=== PATIENT | female | born 2000 | race Caucasian/White ===

== ENCOUNTER 2025-06-08 09:59 | Outpatient (REF) | payer OTHER, SELFPAY ==
--- NOTE | ~2025-06-08 | US_ITS ---
EXAMINATION: US THYROID HISTORY: ABN THYROID FUNCTION TECHNIQUE: Real-time grayscale ultrasound imaging was performed and images were reviewed. COMPARISON: There are no prior studies available for comparison. FINDINGS: SIZE: The right thyroid lobe measures 4.8 x 1.6 x 1.6 cm. The left thyroid lobe measures 3.7 x 1.0 x 1.3 cm. The isthmus measures 4 mm. FLOW: Flow to the gland is increased. ECHOGENICITY: The echotexture of the gland is heterogeneous. NODULES: Multiple prominent cervical lymph nodes are identified. A single thyroid nodule is identified in characteristics as follows: Nodule #: 1 Location: Left isthmus measuring 8 x 3 x 8 mm. Shape: Wider than tall (0 points) Margins: Smooth (0 points) Echotexture: Isoechoic (1 point) Composition: Solid (2 points) Calcifications: None (0 points) Total points: 3 TIRADS: TR3: Mildly suspicious. US/US thyroid IMPRESSION: No suspicious thyroid nodules are identified. ACR TI-RADS Guidelines TR1 (0 points): Benign. No follow-up or biopsy required TR2 (2 points): Not Suspicious. No biopsy or follow up indicated TR3 (3 points): Mildly Suspicious. FNA if >= 2.5 cm, Follow if >= 1.5 cm TR4 (4-6 points): Moderately Suspicious. FNA if >= 1.5 cm, Follow if >= 1.0 cm TR5 (>=7 points): Highly Suspicious. FNA if >= 1.0 cm, Follow if >= 0.5 cm Electronically signed by: Farooq Sevilla MD 06/08/2025 12:20 PM [facility]
--- OUTSIDE RECORDS SUMMARY | 2025-06-08 11:27 | XMS_ITS | Clinical Summary ---
Author Organization [facility] Address [address] [place] [address] Care Team Providers Care Aerodynamics Teacher Name Role Phone Ref, Has No Pcp Or Primary Care Provider Unavail able Allergies No known active allergies Medications Blisovi Fe 08/22, 28, 1 mg-20 mcg (21)/75 mg (7) per tablet Take 1 tablet by mouth once a day. 5 Active OneTouch Verio test strips 1 strip 3 times a day. 100 strip 11 5 Active OneTouch Delica Plus Lancet lancet 33 gauge Use to test 3 times daily. 100 each 11 5 Active Dexcom G6 Sensor deviceIndications :Type 1 diabetes mellitus without complication Change sensor every 10 days. 9 each 3 5 Active insulin lispro injection 100 units/mL vial Use up to 80 units dily via insulin pump 80 mL 3 5 Active Dexcom G6 Transmitter deviceIndications :Type 1 diabetes mellitus without complication As directed 1 each 3 5 Active Dexcom G6 Sensor deviceIndications :Type 1 diabetes mellitus without complication CHANGE SENSOR EVERY 10 DAYS 3 each 11 5 Active levothyroxine (SYNTHROID, LEVOTHROID) 25 mcg tablet Take 1 tablet (25 mcg total) by mouth once a day. 90 tablet 3 5 04/12/20 26 Active Active Problems Patient Care Coordination No te Formatting of this note migh t be different from the original. 07/03/2023 Tandem CIQ T:connect giovanni-linked and sharing Clarity: linked Problem Noted Date Diagnosed Date Subclinical hypothyroidism 07/04/2023 Assessment & Plan (01/19/2025 7:23 AM EDT): She will go to [facility] for a TSH/Reflex Free T4. Assessment & Plan (07/21/2024 9:41 PM EST): She will go to [facility] for a TSH, TPO, and ATG antibody test. Assessment & Plan (01/10/2024 11:11 AM EDT): Her TSH was slightly elevated in July to . She prefers not to take levothyroxine unless absolutely necessary to do so. She should have a repeat TSH at her next office visit. Assessment & Plan (07/04/2023 4:28 PM EST): We reviewed the risks and benefits of levothyroxine in subclinical hypothyroidism. She prefers to defer therapy until it is necessary. I told her she would need to be treated if her TSH goes above 7. I tried to add-on thyroid auto-antibodies, but the lab could not do it. Type 1 diabetes mellitus without complication Assessment & Plan (01/19/2025 7:23 AM EDT): Her GMI of 7.2% is fair but a bit sub-optimal. She would benefit from bolusing consistently 15-20 minutes before meals and from using a mildly increased carb ratio.She will go to [facility] for a serum creatinine, lipid panel, and urine microalbumin. Assessment & Plan (07/21/2024 9:40 PM EST): Her A1c of 6.7% and GMI of 7.1% today indicate her diabetes is under good control. She needs to bolus consistently before her meals. She will go to [facility] for a serum creatinine, lipid panel, and urine microalbumin. Assessment & Plan (01/10/2024 11:10 AM EDT): Her A1c of 6.6% and her GMI of 7/1% indicate her diabetes is under reasonable control. It would be nice to lower her GMI a bit by increasing her correction doses and her basal rate. I will increase her corrections by lowering her target. She ws given a new OneTouch Verio meter to use as a back-up to her DexCom. Assessment & Plan (07/04/2023 4:28 PM EST): Her A1c of 6.7% and her GMI of 7.5% indicate her diabetes is in reasonable, but a bit sub-optimal control. She booker benefit from using a higher carb ratio for all 24 hours , a higher correction after noon, and a lower target. Hopefully, after these changes she will not need to enter phoney carbs to keep her sugars good. She will meet with FABRICE Herrmann for pump education. 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 Encounters Date Type Department Care Team Description 04/12/2025 Telephone [facility] [address] [place] [address] It Applications Developer: Abebe Robetr MD 04/12/2025 Telephone [facility] [address] [place] [address] It Applications Developer: Abebe Robert MD 04/11/2025 Telephone [facility] [address] [place] [id number] It Applications Developer: Abebe Robert MD 04/05/2025 myChart Message [facility] [address] [place] [address] It Applications Developer: Abebe Robert MD Thyroid levels from Last 3 Months Social History Tobacco Use Types Packs/Day Years Used Date Smoking Tobacco: Never Assessed Comments Unknown Sex and Gender Information Value Date Recorded Sex Assigned at Female 08/07/2023 10:23 AM EST Legal Sex Female 7:54 AM EST Gender Identity Female 08/07/2023 10:23 AM EST Sexual Orientation Straight 08/07/2023 10 :23 AM EST Last Filed Vital Signs Vital Sign Reading Time Taken Comments Blood Pressure 124/85 07/20/2024 4:23 PM EST Pulse 68 07/20/2024 4:23 PM EST Temperature - - Respiratory Rate - - Oxygen Saturation - - Inhaled Oxygen Concentration - - Weight 57 kg (125 lb 10.6 oz) 07/20/2024 4:23 PM EST Height 167.6 cm (5' 5.98 ) 07/20/2024 4:23 PM ES T Body Mass Index 20.29 07/20/2024 4:23 PM EST Plan of Treatment Upcoming Encounters Date Type Department Care Team (Late st Contact Info) Description 10/13/2025 3:30 PM EDT Office Visit [facility] [address] [place] [address] It Applications Developer: Abebe Robert MD [address] [place] [phone] (Work) Health Maintenance Due Date Last Done Comments Basic Metabolic Panel 2000 HIV Screening 2000 Pap Smear 2000 Pneumococcal Vaccine: Pediat jean (0-5 Years) and At-Risk Patients (6-50 Years) (1 of 1 - PPSV23, PCV20, or PCV21) 2006 07/12/2002, 04/08/2001, 01/04/2001, Additional history exists Ophthalmology Exam 2010 HPV Vaccines (1 - 3-dose series) 2015 Alcohol/Substance Use Screening 08/03/2024 Depression Screening and Follow-Up 08/03/2024 Social Drivers of Health Gloria ual Screening 08/03/2024 COVID-19 Vaccine (2 - 2024-2 6 season) 2025 11/08/2021 Influenza Vaccine (#1) 2025 Chlamydia Screening 04/11/2025 04/11/2024 Hemoglobin A1C 10/19/2025 04/21/2025, 07/2 12/2024, 12/30/2024, Additional history exists Urine Microalbumin 03/08/2026 03/08/2025, 07/03/2023 DTaP,Tdap,and Td Vaccines (8 - Td or Tdap) 03/03/2033 03/03/2023, 07/20/2012, 08/14/2005, Additional history exists Hepatitis B Vaccines Completed 10/01/2001, 2000, 2000 Varicella Vaccines Completed 03/24/2013, 07/05/2001 Hepatitis C Screening Completed 04/11/2024 Procedures * Due to [place] [employer] law, this organization might not be sharing negative HIV tests. Procedure Name Priority Date/Time Associated Diagnosis Comments T4, FREE Routine 03/08/2025 7:37 AM EDT LIPID PANEL Routine 03/08/2025 7:37 AM EDT Type 1 diabetes mellitus without complication (HCC) CREATININE Routine 03/08/2025 7:37 AM EDT Type 1 diabetes mellitus without complication (HCC) MICROALBUMIN, RANDOM URINE WITH CREATININE Routine 03/08/2025 7:37 AM EDT Type 1 diabetes mellitus without complication (HCC) TSH REFLEX FREE T4 Routine 03/08/2025 7: 37 AM EDT Subclinical hypothyroidism POCT GLYCOSYLATED HEMOGLOBIN (HGB A1C) Routine 07/20/2024 4:29 PM EST from Last 3 Months or Most Recently Relevant to Health Maintenance Results * Due to [place] [employer] law, this organization might not be sharing negative HIV tests. * (ABNORMAL) TSH Reflex Free T4 (03/08/2025 7:37 AM EDT) TSH 11.83(H) mIU/L 03/09/2025 6:20 AM EDT [facility] Comment: Reference Range > or = 20 Years 0.40-4.50 Ranges First trimester 0.26-2.66 Second trimester 0.55-2.73 Third trimester 0.43-2.91 Blood Structure of peripheral vein / Unknown 03/08/2025 7:37 AM EDT 03/08/2025 11:02 PM EDT [facility] - 03/09/2025 3:40 PM EDT FASTING:NO us Abebe Dunn MD LAB BLOOD ORDERABLES Final Re sult Performing Organization Address City/[facility]/ZIP Co de Phone Number [facility] [address], [place] [address], [place] [phone] [employer] [address] [address] * Microalbumin, Random Urine with Creatinine (03/08/2025 7:37 AM EDT) Creatinine, Random Urine 274 20 - 275 mg/dL 03/09/2025 3:38 PM EDT [employer] [facility] Microalbumin 0.5 mg/dL 03/09/2025 3:38 PM EDT [employer] [facility] Comment: Reference Range Not established Microalbumin/Crea tinine Ratio, Random Urine 2 <30 mg/g creat 03/09/2025 3:38 PM EDT [employer] [facility] Comment: The ADA defines abnormalities in albumin excretion as follows: Albuminuria Category Result (mg/g creatinine) Normal to Mildly increased <30 Moderately increased 30-299 Severely increased > OR = 300 The ADA recommends that at least two of three specimens collected within a 3-6 month period be abnormal before considering a patient to be within a diagnostic category. Urine Voided urine specimen / Unknown 03/08/2025 7:37 AM EDT 03/08/2025 10:57 PM EDT [facility] - 03/09/2025 3:40 PM EDT FASTING:NO us Abebe Dunn MD LAB URINE ORDERABLES Final Re sult Performing Organization Address City/[facility]/ZIP Co de Phone Number [facility] [address], [place] [address], [place] [phone] [employer] [facility] [address] [place] [address] * T4, Free (03/08/2025 7:37 AM EDT) T4, Free 1.1 0.8 - 1.8 ng/dL 03/09/2025 6:20 AM EDT [facility] 03/08/2025 7:37 AM EDT 03/08/2025 11:02 PM EDT [facility] - 03/09/2025 3:40 PM EDT FASTING:NO us Abebe Dunn MD LAB BLOOD ORDERABLES Final Re sult Performing Organization Address [facility] de Phone Number [facility] [address] [address], [place] [phone] [employer] [address] [address] * Creatinine (03/08/2025 7:37 AM EDT) Creatinine 0.82 0.50 - 0.96 mg/dL 03/09/2025 12:46 AM EDT [employer] [facility] eGFR 102 > OR = 60 mL/min/1.7 3m2 03/09/2025 12:46 AM EDT [employer] [facility] Blood Structure of peripheral vein / Unknown 03/08/2025 7:37 AM EDT 03/08/2025 11:02 PM EDT Narrative [facility] - 03/09/2025 3:40 PM EDT FASTING:NO us Abebe Dunn MD LAB BLOOD ORDERABLES Final Re sult Performing Organization Address [facility] de Phone Number [facility] [address] [place] [phone], [place] [phone] [employer] [address] [address] * (ABNORMAL) Lipid panel (03/08/2025 7:37 AM EDT) Cholesterol, Total 177 <200 mg/dL 03/09/2025 12:46 AM EDT [employer] [facility] HDL Cholesterol 53 > OR = 50 mg/dL 03/09/2025 12:46 AM EDT [facility] [employer] [facility] Triglycerides 83 <150 mg/dL 03/09/2025 12:46 AM EDT [employer] [facility] LDL-Cholesterol 107(H) mg/dL (calc) 03/09/2025 12:46 AM EDT [facility] Comment: Reference range: <100 Desirable range <100 mg/dL for primary prevention; <70 mg/dL for patients with CHD or diabetic patients with > or = 2 CHD risk factors. LDL-C is now calculated using the Bia calculation, which is a validated novel method providing better accuracy than the Friedewald equation in the estimation of LDL-C. Mandeep SS et al. MICAH. 2013;310(19): 4194-1250 (http://education.[facility]/faq/GRF079) Chol/HDLC Ratio 3.3 <5.0 (calc) 03/09/2025 12:46 AM EDT [facility] Non HDL Cholesterol 124 <130 mg/dL (calc) 03/09/2025 12:46 AM EDT [facility] Comment: For patients with diabetes plus 1 major ASCVD risk factor, treating to a non-HDL-C goal of <100 mg/dL (LDL-C of <70 mg/dL) is considered a therapeutic option. Blood Structure of peripheral vein / Unknown 03/08/2025 7:37 AM EDT 03/08/2025 11:02 PM EDT Narrative [facility] - 03/09/2025 3:40 PM EDT FASTING:NO Abebe Dunn MD LAB BLOOD ORDERABLES Final Re sult [facility] [address], [place] [address], [facility] [address] [place] [address] * (ABNORMAL) POCT Glycosylated Hemoglobin (HGB A1C), interfaced (07/20/2024 4:29 PM EST) Hemoglobin A1C, POCT 6.7(H) <=5.6 % 07/20/2024 4:35 PM EST [facility] Comment: A1C Recommendation for Non- Adults with Diabetes: <7.0% ADA 2011 Standards of Medical Care in Diabetes Blood 07/20/2024 4:29 PM EST 07/20/2024 4:35 PM EST us Abebe Dunn MD LAB POCT ORDERABLES - DEVICE Final Result [facility] [address] [place] [address], [place] from Last 3 Months or Most Recently Relevant to Health Maintenance Insurance [facility] HMO/POS Care Teams Aerodynamics Teacher Relationship Specialty Start Date End Date Ref, Has No Pcp Or DO NOT EDIT THIS RECORD VIA PROVIDER ON THE FLY PCP - General Brick Tosser 06/15/23
--- OUTSIDE RECORDS SUMMARY | 2025-06-08 11:27 | XMS_ITS | Clinical Summary ---
Author Organization [facility] Address [address] [phone] Phone Care Team Providers Care Genetic Scientist Name Role Phone Pcp, Unknown Primary Care Provider Unavailabl e Allergies No known active allergies Medications ONETOUCH VERIO Strp strips 1 each. 02/02/2024 Active DEXCOM G6 SENSOR Brooke CHANGE SENSOR EVERY 10 DAYS 03/24/2024 Active DEXCOM G6 TRANSMITTER Brooke as directed. 03/25/2024 Active insulin lispro (ADMELOG, HUMALOG) 100 unit/mL injection vial 10 Units. 03/25/2024 Acti ve ONETOUCH DELICA PLUS LANCET 33 gauge Misc 1 each. 01/04/2024 Active SRONYX 0.1-20 mg-mcg per tablet Take 1 tablet by mouth every morning. 02/08/2024 Active Active Problems Problem Noted Date Diagnosed Date Routine screening for STI (sexually transmitted infection) 04/11/2024 Assessment & Plan (04/11/2024 3:09 PM EDT): GC/CT and Nuswab collected HIV/syphilis/HepC testing ordered Will follow up and treat as indicated Family History Relation Status Comments Father Alive Mother Alive Sister Alive Social History Tobacco Use Types Packs/Day Years Used Date Smoking Tobacco: Never Smokeless Tobacco: Never Tobacco Cessation:Counseling Given: Not Answered Alcohol Use Standard Drinks/Week Comments Yes 0 (1 standard drink = 0.6 oz pur e alcohol) Education Answer Date Recorded Are you interested in more education? Not on sunil e 04/11/2024 Are you concerned about learning? Not on file 04/11/2024 No 04/11/2024 No 04/11/2024 Digital Access Answer Date Recorded No 04/11/2024 No 04/11/2024 Reliable internet access at home? Not on file 04/11/2024 Device with a working camera? Not on file Comments No Sex and Gender Information Value Date Recorded Sex Assigned at Not on file Legal Sex Female 10:03 AM EDT Gender Identity Not on file Sexual Orientation Not on file Last Filed Vital Signs Vital Sign Reading Time Taken Comments Blood Pressure 112/64 04/11/2024 2:48 PM EDT Pulse - - Temperature - - Respiratory Rate - - Oxygen Saturation - - Inhaled Oxygen Concentration - - Weight 56.7 kg (125 lb) 04/11/2024 2:48 PM EDT Height - - Body Mass Index - - Plan of Treatment Health Maintenance Due Date Last Done Comments DEPRESSION SCREENING 2012 SMOKING Hx and SMOKELESS TOB ACCO SCREENING 2013 HPV VACCINES (1 - 3-dose series) 2015 PAP SMEAR 2021 Adult Td,Tdap Booster 07/20/2022 07/20/2012 INFLUENZA VACCINE (#1) 2025 COVID-19 VACCINE (1 - 2024-2 6 season) 2025 CHLAMYDIA SCREENING 04/11/2025 04/11/2024 HEPATITIS C SCREENING Completed 04/11/2024 HIV ONE-TIME SCREENING (18-6 5 YEARS) Completed 04/11/2024 HEPATITIS A VACCINES Aged Out No long er eligible based on patient's age to complete this topic HIB VACCINES Aged Out No longer eligi ble based on patient's age to complete this topic MENINGOCOCCAL VACCINES (ACWY) Aged Out No longer eligible based on patient's age to complete this topic MENINGOCOCCAL VACCINES (B) Aged Out N o longer eligible based on patient's age to complete this topic PNEUMOCOCCAL VACCINES (0-49 years) Aged Out No longer eligible based on patient's age to complete this topic Medical Devices Not on file Procedures Procedure Name Priority Date/Time Associated Diagnosis Comments HEPATITIS C ANTIBODY, QUALITATIVE Routine 04/11/2024 3:13 PM EDT Need for hepatitis C screening test Routine screening for STI (sexually transmitted infection) CHLAMYDIA TRACHOMATIS AND NEISSERIA GONORRHOEAE NUCLEIC ACID DETECTION Routine 04/11/2024 3:10 PM EDT Routine screening for STI (sexually transmitted infection) from Last 3 Months or Most Recently Relevant to Health Maintenance Results * Hepatitis C antibody, qualitative (04/11/2024 3:13 PM EDT) HCV NON-REACTIV E NON-REACTI VE [facility] Blood 04/11/2024 3:13 PM EDT 04/11/2024 3:17 PM EDT us Paris Lawrence MD LAB BLOOD BKR ORDERABLES Final Result [address] [address] * Chlamydia trachomatis and Neisseria gonorrhoeae Nucleic Acid Amplification (04/11/2024 3:10 PM EDT) Pathologist [facility] CHLAMYDIA TRACHOMATIS Not Detected Not Detected [facility] NEISERIA GONORRHOEAE Not Detected Not Detected [facility] SPECIMEN TYPE ENDOCERVICAL SIGNS SALES REPRESENTATIVE [facility] Other (Endocervical) 04/11/2024 3:10 PM EDT 04/11/2024 7:00 PM EDT us Paris Lawrence MD LAB GENERAL OR DERABLES Final Result Performing Organization Address City/[facility]/ZIP Co de Phone Number [address] [phone] from Last 3 Months or Most Recently Relevant to Health Maintenance Insurance GENERIC COMMERCIAL GENERIC COMMERCIAL GENERIC COMMERCIAL GENERIC COMMERCIAL GENERIC COMMERCIAL GENERIC COMMERCIAL Care Teams Genetic Scientist Relationship Specialty Start Date End Date Pcp, Unknown PCP - General 04/11/24 Additional Source Comments The information contained in this document represents components of the legal health record. It is not the complete legal health record.[facility]
== END 2025-06-08 10:00 | disposition home or self-care (01) ==
LOC: HO.UMASIMG 09:59
PROVIDERS: Visit Provider Registered Nurse
DX: R59.0 Localized enlarged lymph nodes (principal); R94.6 Abnormal results of thyroid function studies
CPT/HCPCS: 76536

== ENCOUNTER → 2025-06-08 10:16 | Outpatient (BNV) | payer OTHER, SELFPAY | PROVIDERS: Visit Provider Radiology Diagnostic Radiology | DX: R94.6 Abnormal results of thyroid function studies (principal) | CPT/HCPCS: 76536 ==